=== PATIENT | female | born 1980 | race American Indian/Alaskan Native ===

== ENCOUNTER 2017-03-12 07:11 | Inpatient (IN) | payer MEDICARE ==
--- NOTE | 2017-03-12 08:06 | XRay Report ---
CHEST 2 VIEWS INDICATION: Shortness of breath. COMPARISON: 03/07/2014. FINDINGS: PA and lateral chest radiographs demonstrate normal cardiomediastinal silhouette. Clear lungs. Intact bones. CONCLUSION: No acute disease in the chest. Thank you for the opportunity to participate in this patient's care.
[2017-03-12 08:45] LABS: Basophils % (Auto) 0.5 % (0.0-1.8); Eosinophils % (Auto) 2.9 % (0.0-4.3); Hematocrit 31.2 % (30.3-42.9); Mean Corpuscular HGB Conc 32 % (30-34); Mean Corpuscular Hemoglobin 30 pg (28-32); Mean Corpuscular Volume 94 fl (79-97); Platelet Count 227 K/mm3 (140-440); Red Blood Count 3.34 M/mm3 (3.65-5.03); Red Cell Distribution Width 16.5 % (13.2-15.2); White Blood Count 9.2 K/mm3 (4.5-11.0)
[2017-03-12 09:00] LABS: Anion Gap 28 mmol/L; BUN/Creatinine Ratio 4.12; Blood Urea Nitrogen 75 mg/dL (7-17); Calcium 8.1 mg/dL (8.4-10.2); Carbon Dioxide 26 mmol/L (22-30); Chloride 90.3 mmol/L (98-107); Glucose 101 mg/dL (65-100); Potassium 5.7 mmol/L (3.6-5.0); Sodium 139 mmol/L (137-145)
[2017-03-12] MEDS ORDERED: BABY ASPIRIN PO ONE (12:23)
--- NOTE | 2017-03-12 12:23 | Emergency Department Report ---
ED General Adult HPI - General Chief complaint: Dyspnea/Respdistress Stated complaint: MISSED DIALYSIS/CHEST PAIN Time Seen by Provider: 03/12/17 12:18 Source: patient, RN notes reviewed Mode of arrival: Ambulatory Limitations: No Limitations - History of Present Illness Initial comments: This is a 36-year-old female. She is previously unknown to me. Her primary compounding technician is Dr. Lauri Jennings Patient has a past medical history of end-stage renal disease on dialysis, Sunday, Sunday, Sunday. She reports that she missed dialysis for 7 days secondary to a "stomach bug." Patient reports that she went to dialysis today, and she was referred to the ER because of having missed her dialysis. She denies headache, neck pain, abdominal pain, shortness of breath. She does complain essentially chest pain, and this pain does not radiate to the back, arms or neck. There is no vomiting or diaphoresis. There is no leg pain or leg swelling. No recent trips greater than 4 hours. No recent hospital admissions. The patient does not take control tablets. She reports that she is not . In the ER, the patient was found to be hyperkalemic with potassium of 5.7, with an elevated blood urea nitrogen and creatinine. X-ray the chest is negative. Case was discussed with the covering compounding technician, Dr. Zamora, who is going to arrange urgent dialysis. He does not recommend hyperkalemia cocktail this time , and agrees that the patient does not urgently require medical management the patient is going to get urgently dialyzed today. Low risk by BETO score, low risk by heart score, low risk by well's criteria, perc negative. Case is presented to the Hospital physician, Dr. Gaspar, who accepts the patient to his service for hyperkalemia, uremia, and nonspecific chest pain. -: Gradual Location: chest Improves with: none Worsens with: none Associated Symptoms: denies other symptoms - Related Data Allergies Allergy/AdvReac Type Severity Reaction Status Date / Time azithromycin Allergy Rash Verified 03/07/14 10:38 [From Zithromax Z-Kp] apples Allergy Unknown Uncoded 03/12/17 07:44 bananas Allergy Unknown Uncoded 03/12/17 07:44 cherries Allergy Unknown Uncoded 03/12/17 07:44 ED Review of Systems ROS: Stated complaint: MISSED DIALYSIS/CHEST PAIN Other details as noted in HPI Constitutional: denies: fever, malaise Eyes: denies: vision change ENT: denies: epistaxis Respiratory: denies: cough Cardiovascular: chest pain Gastrointestinal: denies: abdominal pain, vomiting Genitourinary: denies: urgency, dysuria Musculoskeletal: denies: back pain Skin: denies: lesions Neurological: denies: headache, weakness Psychiatric: denies: anxiety ED Past Medical Hx - Past Medical History Previous Medical History?: Yes Hx Renal Disease: Yes Hx Asthma: Yes - Surgical History Past Surgical History?: Yes Additional Surgical History: Left arm fistula, Permcath in the right and left chest, Right ankle surgery , Left foot with two toes amputated - Social History Smoking Status: Never Smoker Substance Use Type: Alcohol, Prescribed ED Physical Exam - General Limitations: No Limitations General appearance: alert, in no apparent distress - Head Head exam: Present: atraumatic, normocephalic - Eye Eye exam: Present: normal appearance, EOMI. Absent: nystagmus - ENT ENT exam: Present: normal exam, normal orophraynx, mucous membranes moist, normal external ear exam - Neck Neck exam: Present: normal inspection, full ROM - Respiratory Respiratory exam: Present: normal lung sounds bilaterally, chest wall tenderness. Absent: respiratory distress, wheezes, rales, rhonchi, stridor - Cardiovascular Cardiovascular Exam: Present: regular rate, normal rhythm, normal heart sounds. Absent: bradycardia, tachycardia, irregular rhythm, systolic murmur, diastolic murmur, rubs, gallop - GI/Abdominal GI/Abdominal exam: Present: soft, normal bowel sounds. Absent: distended, tenderness, guarding, rebound, rigid, pulsatile mass - Extremities Exam Extremities exam: Present: normal inspection, full ROM, normal capillary refill , other (there is a left upper extremity AV fistula with an appropriate thrill. There is no redness, pus or streaking). Absent: pedal edema, joint swelling, calf tenderness - Back Exam Back exam: Present: normal inspection, full ROM. Absent: CVA tenderness (L), muscle spasm, paraspinal tenderness, vertebral tenderness - Neurological Exam Neurological exam: Present: alert, oriented X3, normal gait, other (Extraocular movements intact. Tongue midline. No facial droop. Facial sensation intact to light touch in the V1, V2, V3 distribution bilaterally. 5 and 5 strength in 4 extremities.. Sensation is intact to light touch in 4 extremities.). Absent : motor sensory deficit - Psychiatric Psychiatric exam: Present: normal affect, normal mood - Skin Skin exam: Present: warm, dry, intact, normal color. Absent: rash ED Course Vital Signs 03/12/17 07:38 Temperature 97.8 F Pulse Rate 86 Respiratory 18 Rate Blood Pressure 130/78 O2 Sat by Pulse 99 Oximetry ED Medical Decision Making - Lab Data Result diagrams: 03/12/17 08:29 03/12/17 08:29 Vital Signs 03/12/17 07:38 Temperature 97.8 F Pulse Rate 86 Respiratory 18 Rate Blood Pressure 130/78 O2 Sat by Pulse 99 Oximetry Lab Results 03/12/17 03/12/17 03/12/17 Range/Units 08:29 08:29 08:29 WBC 9.2 (4.5-11.0) K/mm3 RBC 3.34 L (3.65-5.03) M/mm3 Hgb 10.0 L (10.1-14.3) gm/dl Hct 31.2 (30.3-42.9) % MCV 94 (79-97) fl MCH 30 (28-32) pg MCHC 32 (30-34) % RDW 16.5 H (13.2-15.2) % Plt Count 227 (140-440) K/mm3 Lymph % (Auto) 30.1 (13.4-35.0) % [place] % (Auto) 7.7 H (0.0-7.3) % Eos % (Auto) 2.9 (0.0-4.3) % Baso % (Auto) 0.5 (0.0-1.8) % Lymph # 2.8 (1.2-5.4) K/mm3 [place] # 0.7 (0.0-0.8) K/mm3 Eos # 0.3 (0.0-0.4) K/mm3 Baso # 0.1 (0.0-0.1) K/mm3 Seg Neutrophils % 58.8 (40.0-70.0) % Seg Neutrophils # 5.4 (1.8-7.7) K/mm3 Sodium 139 (137-145) mmol/L Potassium 5.7 H (3.6-5.0) mmol/L Chloride 90.3 L (98-107) mmol/L Carbon Dioxide 26 (22-30) mmol/L Anion Gap 28 mmol/L BUN 75 H (7-17) mg/dL Creatinine 18.2 H (0.7-1.2) mg/dL Estimated GFR 3 ml/min BUN/Creatinine Ratio 4.12 % Glucose 101 H (65-100) mg/dL Calcium 8.1 L (8.4-10.2) mg/dL Troponin T < 0.010 (0.00-0.029) ng/mL NT-Pro-B Natriuret Pep 4402 H (0-450) pg/mL - EKG Data -: EKG Interpreted by Me EKG shows normal: sinus rhythm, axis, intervals, QRS complexes, ST-T waves - Radiology Data Radiology results: report reviewed, image reviewed X-ray of the chest is negative for acute disease Critical care attestation.: If time is entered above; I have spent that time in minutes in the direct care of this critically ill patient, excluding procedure time. ED Disposition Clinical Impression: Hyperkalemia, ESRD (end stage renal disease), Chest pain Disposition: 09 OP ADMIT IP TO THIS HOSP Is pt being admited?: Yes Does the pt Need Aspirin: Yes Condition: Stable Instructions: Chest Pain (ED) Referrals: PRIMARY CARE, [Primary Care Provider] - 3-5 Days
--- NOTE | 2017-03-12 12:30 | Admit Criteria Form ---
Admission Criteria Documentation: RENAL FAILURE, CHRONIC Clinical Indications for Admission to Inpatient Care (Place 'X' for any and all applicable criteria): Admission is indicated for ANY ONE of the following (1)(2)(3)(4)(5): [X ]I. Inpatient admission required rather than observation care (Use Renal Failure, Chronic: Observation Care Criteria as appropriate) because of ANY ONE of the following: [ ]a) Volume overload or uremic symptoms (eg, clinically significant pulmonary edema, hypertension, pericarditis, acidosis) too severe for, or not responsive (eg, for over 24 hours) to emergency department or observation care dialysis or treatment regimen (11) [ ]b) Hemodynamic instability that is severe or persistent [ ]c) Respiratory distress that is severe or persistent (11) [X]d) Clinically significant electrolyte abnormality that requires inpatient care (eg,hyperkalemia with severe ECG findings)[B] [ ]e) Supplement O2 or respiratory therapy for over 24hrs that is performable only in acute inpatient setting [ ]f) Continuous IV infusion of anticoagulation, platelet inhibitor, vasoactive, or Antiarrhythmic medication (15), [ ]g) Pulmonary artery catheter monitoring [ ]h) Temporary pacemaker placement [ ]i) Emergent pericardiocentesis [X]j) Other condition, treatment or monitoring requiring inpatient admission [ ]II. Unexplained syncope [A] [ ]III. Recurrent seizures [ ]IV. Severe infections not treatable in outpatient setting (eg, peritonitis)(9 ) [ ]V. Cardiac arrhythmias of immediate concern [ ]. Encephalopathy [ ]VII.Bleeding abnormalities (eg, platelet dysfunction) with active (eg, gastrointestinal) bleeding Extended stay beyond goal length of stay may be needed for (3)(4)(35)(36): [ ]a) Continuing uremic complications [ ]b) Comorbidities or complications The original [employer] content created by [employer] has been revised. The portions of the content which have been revised are identified through the use of italic text or in bold, and [employer], [facility] has neither reviewed nor approved the modified material. All other unmodified content is copyright [employer]. Please see references footnoted in the original [employer] [facility], [facility]–1983[employer] edition 2016 Admission Criteria Met: Yes
[2017-03-12] MEDS ORDERED: NACL 0.9% 100 ML IV PRN (12:49)
--- NOTE | 2017-03-12 15:09 | Consultation ---
History of Present Illness - Reason for Consult Consult date: 03/12/17 end stage renal disease, hyperkalemia Requesting physician: LILIANA EUBANKS - History of Present Illness This is a 36yo F with PMHx of type 2 DM, hypertension, ESRD on HD on MWF schedule at [facility], who presents to [facility] ER with complaints of midgastric abdominal pain for the last 4-5 days, associated with nausea and several episodes of non-bilious and non-bloody vomiting. Pt also reports several loose stools since last Sunday. Pt's last HD was last Sunday, she missed HD on Sun due to car and transport problem and missed HD on Sun due to above symptoms. She is otherwise known to be compliant with all her treatments. pt denies fever , chills, headache, neck pain, chest pain, shortness of breath, palpitations, rash, muscle pain. No recent travel, sick contacts reported. no significant change in diet, no recent medication change reported. In ER patient was found to be hyperkalemic with potassium of 5.7, with elevated BUN/Cr at 75/18mg/dl. renal consult is requested for management of ESRD/hyperkalemia and arrangement of HD. Past History Past Medical History: anemia, diabetes, dialysis, hypertension Past Surgical History: Other (AVF placement ) Social history: denies: smoking, alcohol abuse, prescription drug abuse, IV drug use Family history: diabetes (mother ) Medications and Allergies Allergies Allergy/AdvReac Type Severity Reaction Status Date / Time azithromycin Allergy Rash Verified 03/07/14 10:38 [From Zithromax Z-Kp] apples Allergy Unknown Uncoded 03/12/17 07:44 bananas Allergy Unknown Uncoded 03/12/17 07:44 cherries Allergy Unknown Uncoded 03/12/17 07:44 Home Medications Medication Instructions Recorded Confirmed Last Taken Type RX: Calcium Acetate 667 mg PO DAILY 03/12/17 03/12/17 03/12/17 History glipiZIDE [Glucotrol] 10 mg PO QDAY 03/12/17 03/12/17 03/12/17 History Active Meds: Active Medications Sodium Chloride (Nacl 0.9%) 100 mls @ 999 mls/hr IV CHEVY PRN PRN Reason: Hypotension Review of Systems Constitutional: weakness, poor appetite Gastrointestinal: abdominal pain, nausea, vomiting, diarrhea Exam - Vital Signs Vital signs: Vital Signs Temp Pulse Resp BP Pulse Ox 97.8 F 86 18 130/78 99 03/12/17 07:38 03/12/17 07:38 03/12/17 07:38 03/12/17 07:38 03/12/17 07:38 - General Appearance General appearance: well-developed, well-nourished, appears stated age EENT: ATNC, PERRL, mucous membranes moist Neck: Present: neck supple Respiratory: Clear to Ascultation Heart: regular, S1S2 Gastrointestinal: Present: normoactive bowel sounds Integumentary: no rash, other (trace edema b/l lE ) Neurologic: no focal deficit, alert and oriented x3, strength 5/5 Psychiatric: mood/affect appropriate, cooperative Results - Lab Results 03/12/17 08:29 03/12/17 08:29 Most recent lab results Calcium 8.1 mg/dL (8.4-10.2) L 03/12/17 08:29 Laboratory Tests 03/12/17 03/12/17 08:29 08:29 Calcium 8.1 L Troponin T < 0.010 NT-Pro-B Natriuret Pep 4402 H Assessment and Plan - Patient Problems (1) Hyperkalemia Current Visit: Yes Status: Acute Plan to address problem: will arrange HD today, using 2K bath. cont 2g K renal diet. D/w patient, Dr Eubanks and RN (2) ESRD (end stage renal disease) Current Visit: Yes Status: Chronic Plan to address problem: cont HD on MWF schedule (3) Hypertensive chronic kidney disease with stage 5 chronic kidney disease or end stage renal disease Current Visit: Yes Status: Chronic Plan to address problem: Monitor BP on current BP regimen (4) Type 2 diabetes mellitus with diabetic chronic kidney disease Current Visit: Yes Status: Chronic Qualifiers: Diabetes mellitus correction insulin use: D Chronic kidney disease stage: on chronic dialysis Plan to address problem: glucose control as per primary attending (5) Anemia in chronic illness Current Visit: Yes Status: Chronic Plan to address problem: if Hb remains <10 will cont EPO w/ HD
[2017-03-12] MEDS ORDERED: D50W (25GM) IV PRN (17:25)
--- NOTE | 2017-03-12 17:30 | History and Physical Report ---
History of Present Illness Date of examination: 03/12/17 Date of admission: 03/12/17 12:47 Chief complaint: Missed 2 sessions of dialysis History of present illness: 36-year-old -[place] female with past medical history significant for interstitial disease on hemodialysis, diabetes mellitus type 2, CHF presented to the emergency department complaining of she missed 2 sets of hemodialysis she said she missed Sunday because of transportation problem and she missed Sunday because she feels sick. In the ED labs were done and she is signed out to have hyperkalemia and nephrology was consulted and patient had emergency dialysis. Patient said she has some chest discomfort but the troponin was negative and EKG was normal sinus rhythm. Chest pain resolved. REVIEW OF SYSTEMS: GENERAL: no weight change, no fatigue, no fever HEAD: no head ache EYES: no blurry vision, no acute visual loss EARS: no hearing loss, no discharge, no earache NOSE: no stuffiness, no sneezing, no discharge MOUTH, THROAT AND NECK: no bleeding gums, no sore throat, no swollen neck CARDIAC: no palpitations, no dyspnea on exertion, no orthopnea, no PND, no edema , + chest pain RESPIRATORY: no shortness of breath, no wheeze, no cough, no sputum, no hemoptysis, no asthma GI: no decreased appetite, no nausea, no vomiting, no dysphagia, no diarrhea, no constipation, no abdominal pain URINARY: no change in frequency, no urgency, no polyuria, no hematuria, no incontinence MUSCULOSKELETAL: no muscle weakness, no pain, no joint stiffness NEUROLOGIC: no loss of sensation/numbness, no tingling, no tremors, no weakness/ paralysis HEMATOLOGIC: no anemia, no easy bruising SKIN: no rashes ENDOCRINE: no heat/cold intolerance, no polyuria, no polydipsia, no thyroid problems, + diabetes PSYCHIATRIC: no anxiety, no depression, no suicidal ideations Past History Past Medical History: anemia, diabetes, dialysis, hypertension Past Surgical History: Other (AVF placement ) Social history: denies: smoking, alcohol abuse, prescription drug abuse, IV drug use Family history: diabetes (mother ) Medications and Allergies Allergies Allergy/AdvReac Type Severity Reaction Status Date / Time azithromycin Allergy Rash Verified 03/07/14 10:38 [From Zithromax Z-Kp] apples Allergy Unknown Uncoded 03/12/17 07:44 bananas Allergy Unknown Uncoded 03/12/17 07:44 cherries Allergy Unknown Uncoded 03/12/17 07:44 Home Medications Medication Instructions Recorded Confirmed Last Taken Type Calcium Acetate 667 mg PO DAILY 03/12/17 03/12/17 03/12/17 History glipiZIDE [Glucotrol] 10 mg PO QDAY 03/12/17 03/12/17 03/12/17 History Active Meds: Active Medications Calcium Acetate (Phoslo) 667 mg PO DAILY [facility] Dextrose (D50w (25gm)) 50 ml IV PRN PRN PRN Reason: Hypoglycemia Glipizide (Glucotrol) 10 mg PO QDAY PREM Sodium Chloride (Nacl 0.9%) 100 mls @ 999 mls/hr IV CHEVY PRN PRN Reason: Hypotension Insulin Aspart (Novolog) 0 units SUB-Q QHS PREM PRN Reason: Protocol Exam - Physical Exam Narrative exam: Not in cardiopulmonary distress. The patient appeared well nourished and normally developed. Vital signs as documented. Head exam is unremarkable. No scleral icterus . Neck is without jugular venous distension, thyromegaly, or carotid bruits. Lungs are clear to auscultation. Cardiac exam reveals regular rate and Rhythm. First and second heart sounds normal. No murmurs, rubs or gallops. Abdominal exam reveals normal bowel sounds, no masses, no organomegaly and no aortic enlargement. Extremities are nonedematous and both femoral and pedal pulses are normal. VIOLIN TUTOR: Alert and oriented 3. No focal weakness. - Constitutional Vitals: Temp Pulse Resp BP Pulse Ox 97.5 F L 83 18 92/56 100 03/12/17 14:00 03/12/17 17:15 03/12/17 14:00 03/12/17 17:15 03/12/17 12:30 Results - Labs CBC & Chem 7: 03/12/17 08:29 03/12/17 08:29 Labs: Laboratory Last Values WBC 9.2 K/mm3 (4.5-11.0) 03/12/17 08:29 RBC 3.34 M/mm3 (3.65-5.03) L 03/12/17 08:29 Hgb 10.0 gm/dl (10.1-14.3) L 03/12/17 08:29 Hct 31.2 % (30.3-42.9) 03/12/17 08: MCV 94 fl (79-97) 03/12/17 08: MCH 30 pg (28-32) 03/12/17 08: MCHC 32 % (30-34) 03/12/17 08:29 RDW 16.5 % (13.2-15.2) H 03/12/17 08:29 Plt Count 227 K/mm3 (140-440) 03/12/17 08:29 Lymph % (Auto) 30.1 % (13.4-35.0) 03/12/17 08:29 [place] % (Auto) 7.7 % (0.0-7.3) H 03/12/17 08: Eos % (Auto) 2.9 % (0.0-4.3) 03/12/17 08:29 Baso % (Auto) 0.5 % (0.0-1.8) 03/12/17 08: Lymph # 2.8 K/mm3 (1.2-5.4) 03/12/17 08:29 [place] # 0.7 K/mm3 (0.0-0.8) 03/12/17 08:29 Eos # 0.3 K/mm3 (0.0-0.4) 03/12/17 08:29 Baso # 0.1 K/mm3 (0.0-0.1) 03/12/17 08:29 Seg Neutrophils % 58.8 % (40.0-70.0) 03/12/17 08: Seg Neutrophils # 5.4 K/mm3 (1.8-7.7) 03/12/17 08:29 Sodium 139 mmol/L (137-145) 03/12/17 08:29 Potassium 5.7 mmol/L (3.6-5.0) H 03/12/17 08:29 Chloride 90.3 mmol/L (98-107) L 03/12/17 08:29 Carbon Dioxide 26 mmol/L (22-30) 03/12/17 08:29 Anion Gap 28 mmol/L 03/12/17 08:29 BUN 75 mg/dL (7-17) H 03/12/17 08:29 Creatinine 18.2 mg/dL (0.7-1.2) H 03/12/17 08:29 Estimated GFR 3 ml/min 03/12/17 08:29 BUN/Creatinine Ratio 4.12 % 03/12/17 08:29 Glucose 101 mg/dL (65-100) H 03/12/17 08:29 Calcium 8.1 mg/dL (8.4-10.2) L 03/12/17 08:29 Troponin T < 0.010 ng/mL (0.00-0.029) 03/12/17 08:29 NT-Pro-B Natriuret Pep 4402 pg/mL (0-450) H 03/12/17 08:29 - Imaging and Cardiology Chest x-ray: image reviewed (no acute cardiothoracic abnormality detected) Assessment and Plan Assessment and plan: ESRD on hemodialysis Noncompliance with hemodialysis Hyperkalemia Diabetes mellitus type 2 Unspecified CHF, per patient Nonspecific chest pain - Troponin is negative, EKG no ST elevation - Continue appropriate home medications - sliding scale of insulin - Patient is on hemodialysis now DVT prophylaxis - Heparin Disposition - Possible discharge in the morning. Advance Directives: Yes VTE prophylaxis?: Chemical Plan of care discussed with patient/family: Yes
[2017-03-12] MEDS ORDERED: NOVOLOG SUB-Q SCH (22:00)
[2017-03-12] MEDS: HEPARIN SUB-Q SCH (23:55)
[2017-03-13 05:35] LABS: Basophils % (Auto) 0.8 % (0.0-1.8); Eosinophils % (Auto) 3.9 % (0.0-4.3); Hematocrit 30.1 % (30.3-42.9); Hemoglobin 9.8 gm/dl (10.1-14.3); Mean Corpuscular HGB Conc 33 % (30-34); Mean Corpuscular Hemoglobin 30 pg (28-32); Mean Corpuscular Volume 93 fl (79-97); Platelet Count 188 K/mm3 (140-440); Red Blood Count 3.23 M/mm3 (3.65-5.03); Red Cell Distribution Width 16.6 % (13.2-15.2); White Blood Count 6.7 K/mm3 (4.5-11.0)
[2017-03-13 05:52] LABS: BUN/Creatinine Ratio 2.84; Calcium 7.5 mg/dL (8.4-10.2); Chloride 92.3 mmol/L (98-107); Potassium 5.3 mmol/L (3.6-5.0)
[2017-03-13] MEDS: HEPARIN SUB-Q SCH ×2 (06:07→16:41)
[2017-03-13] MEDS ORDERED: GLUCOTROL PO SCH (08:00)
[2017-03-13] MEDS ORDERED: PHOSLO PO SCH (10:00)
--- NOTE | 2017-03-13 11:02 | Progress Note ---
Assessment and Plan - Patient Problems (1) Hyperkalemia Current Visit: Yes Status: Acute Plan to address problem: improved after HD. cont 2g K renal diet. (2) ESRD (end stage renal disease) Current Visit: Yes Status: Chronic Plan to address problem: cont HD on MWF schedule. pt can be discharged from renal stand point and resume maintenance HD on MWF at [facility] (3) Hypertensive chronic kidney disease with stage 5 chronic kidney disease or end stage renal disease Current Visit: Yes Status: Chronic Plan to address problem: Monitor BP on current BP regimen (4) Type 2 diabetes mellitus with diabetic chronic kidney disease Current Visit: Yes Status: Chronic Qualifiers: Diabetes mellitus vermin exterminator insulin use: D Chronic kidney disease stage: on chronic dialysis Plan to address problem: glucose control as per primary attending (5) Anemia in chronic illness Current Visit: Yes Status: Chronic Plan to address problem: if Hb remains <10 will cont EPO w/ HD Subjective Date of service: 03/13/17 Principal diagnosis: esrd, hyperkalemia Interval history: pt awake, alert, in NAD. denies n/v/d abdominal pain Objective - Vital Signs Vital signs: Vital Signs - 12hr 03/13/17 03/13/17 03/13/17 04:10 05:39 08:27 Temperature 98.1 F 98.2 F Pulse Rate 62 90 74 Respiratory 22 16 Rate Blood Pressure 136/63 131/78 O2 Sat by Pulse 98 100 Oximetry - General Appearance General appearance: well-developed, well-nourished, appears stated age EENT: ATNC, PERRL, mucous membranes moist Neck: no JVD Respiratory: Present: Clear to Ascultation Cardiology: regular, S1S2 Gastrointestinal: normal, normoactive bowel sounds Integumentary: no rash, ulcer (at Rt foot plantar area ), other (no edema ) Neurologic: no focal deficit, alert and oriented x3, strength 5/5, CN 3-12 intact Psychiatric: mood/affect appropriate, cooperative - Lab 03/13/17 04:20 03/13/17 04:20 Most recent lab results Calcium 7.5 mg/dL (8.4-10.2) L 03/13/17 04:20
--- NOTE | 2017-03-13 11:44 | Discharge Summary ---
Providers - Providers Date of Admission: 03/12/17 12:47 Date of discharge: 03/13/17 Attending physician: MERCED HARO MD 03/13/17 00:55 Consult to Wound/ET Nurse [CONS] Routine Reason For Exam: wound eval Primary care physician: [employer] Hospitalization Reason for admission: hyperkalemia Condition: Stable Hospital course: Patient is a 36-year-old female with a history of end-stage renal disease on dialysis, Sunday, Sunday, Sunday. She reports that she missed dialysis for 7 days secondary to a "stomach bug." She also informed this to the ER physician she discussed with my hospitalist and informed them that this was due to missed transportation and that was the same the patient informs me today. In any case presents to the hospital was noted to have hyperkalemia and also complained of intermittent chest pain in the ER. A mild discussion she denied any chest pain that she only missed dialysis. Have emergent dialysis and once again today a pharmacy she does not have chest pain. Her potassium has improved. She was seen by skidder runner and given the okay for discharge. Was did spend extensive time discussing with the patient need to be compliant with dialysis which she verbalized understanding. In the ER she did have a low risk BETO score. Medical's clinically stable for discharge. Findings of ulceration on the lower extremity was discussed with the patient she reports that she is being followed by her primary care physician Discharge diagnosis Hyperkalemia ESRD on hemodialysis Noncompliance with hemodialysis Hyperkalemia Diabetes mellitus type 2 Anemia secondary to chronic renal disease Atypical chest pain-like syndrome due to costochondritis again patient denies this to me although informs ER physician and primary hospitalist Disposition: TO HOME OR SELFCARE Time spent for discharge: 35 MINS Core Measure Documentation - Palliative Care Palliative Care/ Comfort Measures: Not Applicable - Core Measures Any of the following diagnoses?: none - VTE Discharge Requirements Deep Vein Thrombosis/Pulmonary Embolism Present on Admission: No Exam - Physical Exam Narrative exam: VITAL SIGNS: Reviewed. GENERAL: The patient appeared well nourished and normally developed. Vital signs as documented. HEAD: No signs of head trauma. EYES: Pupils are equal. Extraocular motions intact. EARS: Hearing grossly intact. MOUTH: Oropharynx is normal. NECK: No adenopathy, no JVD. CHEST: Chest with clear breath sounds bilaterally. No wheezes, rales, or rhonchi. CARDIAC: Regular rate and rhythm. S1 and S2, without murmurs, gallops, or rubs. VASCULAR: No Edema. Peripheral pulses normal and equal in all extremities. ABDOMEN: Soft, without detectable tenderness. No sign of distention. No rebound or guarding, and no masses palpated. Bowel Sounds normal. MUSCULOSKELETAL: Good range of motion of all major joints. Extremities without clubbing, cyanosis or edema. NEUROLOGIC EXAM: Alert and oriented x 3. No focal sensory or strength deficits. Speech normal. Follows commands. PSYCHIATRIC: Mood normal. SKIN: ULCER at Rt foot plantar area -chronic crusted well - Constitutional Vitals: Temp Pulse Resp BP Pulse Ox 98.2 F 74 16 131/78 100 03/13/17 08:27 03/13/17 08:27 03/13/17 08:27 03/13/17 08:27 03/13/17 08:27 Plan Activity: advance as tolerated, fall precautions Diet: diabetic, renal Special Instructions: record daily BP diary, record blood sugar diary, other ( must be compliant with dialysis) Follow up with: ARNALDO SILVA MD [Primary Care Provider] - 3-5 Days JE CASTELLANOS MD [Staff Physician] - 7 Days
[2017-03-13 12:13] VITALS: BP 133/91
== END 2017-03-13 20:40 | disposition home or self-care (01) | DRG 640 ==
LOC: ED 07:11 → 4A 12:47
PROVIDERS: ADMIT Internal Medicine; ATTEND Internal Medicine
PROC: 5A1D00Z (ICD-10-PCS; principal; 2017-03-12)
DX: E87.5 Hyperkalemia (principal); N18.6 End stage renal disease; I13.2 Hypertensive heart and chronic kidney disease with heart failure and with stage 5 chronic kidney disease, or end stage renal disease; M94.0 Chondrocostal junction syndrome [Tietze]; I50.9 Heart failure, unspecified; E11.22 Type 2 diabetes mellitus with diabetic chronic kidney disease; D63.1 Anemia in chronic kidney disease; Z91.15 Patient's noncompliance with renal dialysis; Z83.3 Family history of diabetes mellitus; Z91.018 Allergy to other foods
CPT/HCPCS: 36415; 71020; 80048; 82962; 83880; 84484; 85025; 93005; 93010; J1644; J1815

== ENCOUNTER 2021-12-05 07:12 | Outpatient (CLI) | payer MEDICARE ==
--- NOTE | 2021-12-05 12:21 | Vascular Lab Report ---
DUPLEX DOPPLER LOWER EXTREMITY ARTERIAL, BILATERAL XIOMARA EVALUATION INDICATION / CLINICAL INFORMATION: N18.6 END STAGE RENAL DISEASE. TECHNIQUE: Arterial duplex examination of both lower extremities performed using B-mode, color flow a nd spectral Doppler assessment. FINDINGS: RIGHT: Moderate atherosclerotic disease. Common Femoral Artery: PSV 101 cm/sec. Monophasic waveform. Proximal SFA: PSV 80 cm/sec. Monophasic waveform. Mid SFA: PSV 86 cm/sec. Monophasic waveform. Distal SFA: PSV 77 cm/sec. Monophasic waveform. Popliteal Artery: PSV 60 cm/sec. Monophasic waveform. Posterior Tibial Artery: PSV 48 cm/sec. Monophasic waveform. Dorsalis Pedis Artery: PSV 98 cm/sec. Monophasic waveform. LEFT: Moderate atherosclerotic disease. Common Femoral Artery: PSV 84 cm/sec. Triphasic waveform. Proximal SFA: PSV 82 cm/sec. Triphasic waveform. Mid SFA: PSV 76 cm/sec. Monophasic waveform. Distal SFA: PSV 71 cm/sec. Monophasic waveform. Popliteal Artery: PSV 54 cm/sec. Monophasic waveform. Posterior Tibial Artery: PSV 37 cm/sec. Monophasic waveform. Dorsalis Pedis Artery: PSV 111 cm/sec. Monophasic waveform. ADDITIONAL FINDINGS: None. RIGHT XIOMARA: 1.0 LEFT XIOMARA: 1.1 IMPRESSION: 1. Moderate atherosclerotic disease is present throughout both lower extremities. 2. Findings suggestive of peripheral arterial disease including abnormal monophasic waveforms edmundo hutchison. Ankle-Brachial Index (XIOMARA): - Calcified arteries > 1.4 - Normal = 0.9-1.4 - Mild PAD = 0.7-0.89 - Moderate PAD = 0.51-0.69 - Severe PAD < 0.5 Doppler Waveform: - Triphasic is normal. - Biphasic is abnormal if clear transition from triphasic signal along vascular tree. - Monophasic is abnormal. Scribed by: Zeinab Adcox RDMS, RVT, RMSKS Scribed: 12/05/2021 10:37 AM I have reviewed the images, agree with this report, and edited this report as needed. Signer Name: Hasmukh Mariee MD Signed: 12/05/2021 12:04 PM Workstation Name: [id number]
== END 2021-12-05 07:13 | disposition home or self-care (01) ==
LOC: VAS 07:12
PROVIDERS: ATTEND Surgery Vascular Surgery
DX: I70.203 Unspecified atherosclerosis of native arteries of extremities, bilateral legs (principal); N18.6 End stage renal disease; Z99.2 Dependence on renal dialysis
CPT/HCPCS: 93922; 93925